=== PATIENT | female | born 1990 ===

== ENCOUNTER 2020-04-17 20:08 | Emergency (ER) | payer OTHER ==
[~2020-04-17] VITALS: Ht 157.5 cm; Wt 52.2 kg
--- NOTE | 2020-04-17 20:15 | NUR ---
Patienty is 12 weeks came in today c/o dyuria, polyuria and cloudy urine with hematuria that started 4hrs PHYSICIAN NEONATOLOGY.
[2020-04-17] MEDS ORDERED: PROM25TA15 PO (20:22)
[2020-04-17] MEDS ORDERED: DOXY1TAB8 PO (20:22)
[2020-04-17] MEDS ORDERED: CEPH500C2 PO ×2 (20:22→23:03)
[2020-04-17 20:30] LABS: *BILIRUBIN,URIN NEGATIVE (NEGATIVE); *BLOOD, URINE 3+ (NEGATIVE); *CLARITY,URINE CLOUDY (CLEAR); *COLOR,URINE PINK (YELLOW); *KETONES,URINE 1+ (NEGATIVE); *UROBILINOGEN,URINE 0.2 E.U./dl (NORMAL); LEUKOCYTE ESTERASE ,URINE 2+ (NEGATIVE); NITRITE, URINE NEGATIVE (NEGATIVE); UGLUCOSE NEGATIVE (NEGATIVE)
[2020-04-17 20:31] LABS: *URINE HCG, QUAL POSITIVE (NEGATIVE)
[2020-04-17 20:40] LABS: RBC,URINE TNTC /HPF (0-3)
--- NOTE | 2020-04-17 20:57 | NUR ---
Dr. Pressley at bedside for MSE.
--- NOTE | 2020-04-17 23:09 | NUR ---
Patient discharged to home in stable condition. Written and verbal after care instructions given. Patient verbalizes understanding of instructions. Stressed follow up or return to ER for worsening s/s. Pt ambulated out of the ER with steady gait. All belongings with pt.
[2020-04-17 23:10] VITALS: BP 97/64
== END 2020-04-17 23:10 | disposition home or self-care (01) ==
LOC: ER 20:14
DX: O23.41 Unspecified infection of urinary tract in pregnancy, first trimester (principal); Z3A.12 12 weeks gestation of pregnancy
CPT/HCPCS: 76856; 84703; 87086; A4663

== ENCOUNTER 2020-11-09 18:30 | Emergency (ER) | payer OTHER ==
[~2020-11-09] VITALS: Ht 157.5 cm; Wt 63.0 kg
[~2020-11-09 18:30] MED LIST: CEPH500C2 PO; DOXY1TAB8 PO; PROM25TA15 PO
[2020-11-09] MEDS ORDERED: IBUPROFEN PO (19:07)
--- NOTE | 2020-11-09 19:08 | NUR ---
Dr. Monahan at bedside for MSE.
--- NOTE | 2020-11-09 19:12 | NUR ---
Xray at bedside.
[2020-11-09 19:33] LABS: HEMATOCRIT 31.8 % (31.2-41.9); MEAN CORPUSCULAR HEMOGLOBIN 25.5 uug (24.7-32.8); MEAN CORPUSCULAR VOLUME 77.7 fL (75.5-95.3); PLATELET COUNT (AUTO) 460 K/uL (179-408)
[2020-11-09 19:41] LABS: CREATININE 0.6 mg/dL (0.6-1.3); POTASSIUM 4.6 mmol/L (3.5-5.1)
[2020-11-09] MEDS ORDERED: SWABABLE VALVE TRANSFER SET EA MC ONE (20:21)
[2020-11-09] MEDS ORDERED: IOHEXOL 350 100 ML INFUS..BTL ONE (20:22)
[2020-11-09] MEDS ORDERED: IV NORMAL SALINE 250 ML IV ONE (20:22)
--- NOTE | 2020-11-09 20:33 | NUR ---
Pt out of ER for CT.
[2020-11-09 20:39] LABS: IRON, SERUM 25 ug/dL (50-175)
[2020-11-09 20:56] LABS: FERRITIN 15 ng/mL (8-252)
--- NOTE | 2020-11-09 20:56 | NUR ---
Dr. Monahan speaking with Dr. Flynn.
--- NOTE | 2020-11-09 21:05 | NUR ---
Pt back to ER from CT.
[2020-11-09] MEDS ORDERED: CYANOCOBALAMIN 1000 MCG/ML VIAL IM ONE (22:00)
--- NOTE | 2020-11-09 22:00 | NUR ---
Dr. Monahan speaking with Dr. Juan C Sparks.
[2020-11-09] MEDS ORDERED: CYANOCOBALAMIN 1000 MCG/ML VIAL ONE (22:10)
[2020-11-09] MEDS ORDERED: PROC10TA29 PO (22:51)
[2020-11-09] MEDS ORDERED: NAPR-1164 PO (22:51)
[2020-11-09] MEDS ORDERED: SUMA100T16 PO (22:51)
--- NOTE | 2020-11-09 22:59 | NUR ---
Patient discharged to home in stable condition. Written and verbal after care instructions given. Patient verbalizes understanding of instructions. Stressed follow up or return to ER for worsening s/s. Patient out of ER with steady gait, no acute signs of distress, VSS, all belongings taken, IV site discontinued, provided with copies of labs and imaging results.
[2020-11-09 23:00] VITALS: BP 120/85
== END 2020-11-09 23:00 | disposition home or self-care (01) ==
LOC: ER 18:38
DX: G43.909 Migraine, unspecified, not intractable, without status migrainosus (principal); G51.0 Bell's palsy; D50.9 Iron deficiency anemia, unspecified; E53.8 Deficiency of other specified B group vitamins; Z98.84 Bariatric surgery status; Z88.1 Allergy status to other antibiotic agents; R00.1 Bradycardia, unspecified
CPT/HCPCS: 36415; 70450; 70496; 70498; 71045; 80048; 82607; 82728; 82962; 83550; 84484; 85025; 85651; 85730; 93005; 99285; J3420; Q9967; 70030-TC; A4663; J7050